=== PATIENT | female | born 1925 | race Caucasian/White ===

== ENCOUNTER 2016-09-22 09:16 | Inpatient (IN) | payer OTHER, BC ==
[~2016-09-22] VITALS: Ht 170.2 cm; Wt 71.8 kg
--- NOTE | ~2016-09-22 | 2DMMODE ---
[facility] [place] [address] 2 D/M-MODE ECHOCARDIOGRAM Name: DARIO CATHERINE Room #: 219-P ADM IN .R.#: [id number] Admission: 09/22/16 Attend Phys: Dallas Abreu MD Discharge: Date of : [birth year] Date of Service: 09/22/16 1757 Report #: [id number] THIS REPORT FOR: //name// APPROVED REPORT Study performed: 09/22/2016 15:18:26 EXAM: Comprehensive 2D, Doppler, and color-flow Echocardiogram Patient Location: Bedside Room #: 219 Other Information Study Quality: Adequate Indications Arrhythmia COPD Hypertension/HDD 2D Dimensions RVDd: 23.67 mm LVEF(%): 54.65 (>50%) IVSd: 15.38 (7-11mm) LVOT Diam: 21.39 (18-24mm) LVDd: 30.95 mm PWd: 15.60 (7-11mm) Ascending Ao: 29.72 (22-36mm) LVDs: 22.49 (25-40mm) Aortic Root: 29.10 mm IVC: 17.00 mm Watkins's LVEF: 54.65 % Volumes Left Atrial Volume (Systole) Single Plane 4CH: 26.01 mL Single Plane 2CH: 61.95 mL LA ESV Index: 24.00 mL/m2 Aortic Valve AoV Peak Keny.: 1.85 m/s AO Peak Gr.: 14.13 mmHg LVOT Max P.79 mmHg LVOT Max V: 0.84 m/s ROBI Vmax: 1.62 cm2 Mitral Valve MV E Max Keny.: 1.25 m/s IVRT: 110.73 ms [facility] [place] [place] [address] 2 D/M-MODE ECHOCARDIOGRAM Name: DARIO CATHERINE Room #: 219-P [facility] IN [facility].#: [id number] Admission: 09/22/16 Attend Phys: Dallas Abreu MD Discharge: Date of : [birth year] Date of Service: 09/22/16 1757 Report #: [id number] Pulmonary Valve PV Peak Keny.: 0.98 m/s PV Peak Gr.: 3.86 mmHg Tricuspid Valve TR Peak Keny.: 3.48 m/s RAP Estimate: 5.00 mmHg TR Peak Gr.: 48.56 mmHg Left Ventricle The left ventricle is normal size. There is normal LV segmental wall motion. Moderate concentric left ventricular hypertrophy. The overall left ventricular systolic function appears normal. LVEF is 60%. This study is not technically sufficient to allow evaluation of the LV diastolic function due to atrial flutter. Right Ventricle The right ventricle is normal size. The right ventricular systolic function is normal. Atria The left atrium size is normal. The right atrium size is normal. Aortic Valve The Aortic valve is mildly calcified Mild aortic regurgitation. There is no aortic valvular stenosis. Mitral Valve Moderate mitral annular calcification Mild mitral regurgitation. Tricuspid Valve The tricuspid valve is normal in structure. There is trace to mild tricuspid regurgitation. The right atrial pressure is estimated at 10 mmHg and PAP estimated at 59 mmHg. Pulmonic Valve The pulmonary valve is normal in structure. Trace pulmonic regurgitation. Great Vessels The aortic root is normal in size. IVC is normal in size and collapses <50% with inspiration. Pericardium There is no pericardial effusion. [facility] [place] [address] 2 D/M-MODE ECHOCARDIOGRAM Name: DARIO CATHERINE Room #: 219-P [facility] IN M.R.#: [id number] Admission: 09/22/16 Attend Phys: Dallas Abreu MD Discharge: Date of : [birth year] Date of Service: 09/22/161756 Report #: [id number] <Conclusion> The overall left ventricular systolic function appears normal. Moderate concentric left ventricular hypertrophy. There is normal LV segmental wall motion. LVEF 60%. The Aortic valve is mildly calcified, no stenosis. Mild aortic regurgitation. Moderate mitral annular calcification Mild mitral regurgitation. Pulmonary artery pressure of 55mmHg There is no pericardial effusion. <ELECTRONICALLY SIGNED> By: Mau Smith MD, [facility] 09/22/161756 56 1757 Mau Smiht MD, FACC /INF
[~2016-09-22 09:16] MED LIST: ADVAIR 100-501 EACH INH; ADVAIR 250-501 EACH INH; ALLERGY10 MG PO; ASPIR 8181 MG PO; ATACAND8 MG PO; AUGMENTIN 875875 M1 PO; AVAPRO300 MG PO; AZITHROMYCIN 2250 MG PO; CENTRUM SILVER1 EAC1 PO; COZAAR PO; DUONEB 2.5-0.5 M3 ML INH; FLONASE; FUROSEMIDE 40 M40 M1 PO; HYDROCHLOROTH12.5 MG PO; HYDROCODON-ACE1 EAC7 PO; HYDROCODONE-CHLO5 ML PO; IRON325; IRON325 PO; KLOR-CON 10 ER10 MEQ PO; KLOR-CON PO; LASIX 40 MG TAB40 M1 PO; LASIX 40 MG TAB40 M2 PO; LIPITOR10 MG PO; MIRALAX17 GM PO; NITRO-DUR 10 C0.2 MG TD; NORCO 5-325 TA1 EACH PO; OCUVITE TABLET1 EAC1 PO; OMEPRAZOLE20 MG PO; OS-CAL 500+D C1 EACH PO; PREDNISONE50 MG PO; PRESERVISION L1 EACH PO; PROAIR HFA8.5 GM IH; PROAIR HFA8.5 GM INH; PROTONIX40 M1 PO; SIMVASTATIN40 MG PO; VENTOLIN HFA 1818 GM; VERAPAMIL ER180 M1 PO; VERAPAMIL HCL180 M1 PO; VITAMIN D1000 UNI1 PO; ZPAK PO
[2016-09-22 12:40] VITALS: BP 183/97
[2016-09-22 16:00] VITALS: BP 135/64
[2016-09-22 19:27] VITALS: BP 144/70
[2016-09-22 22:11] LABS: ABSOLUTE NEUTROPHILS 4.2 thou/uL (1.4-8.2); BASOPHILS 0.6 % (0.0-2.0); EOSINOPHILS 6.6 % (0.0-3.0); HEMATOCRIT 33.6 % (37.0-47.0); LYMPHOCYTES 19.7 % (24.0-44.0); MCH 30.1 pg (26.0-34.0); MCHC 32.7 g/dL (28.0-37.0); MCV 92.2 fL (80.0-100.0); MONOCYTES 9.6 % (1.0-8.0); PLATELET COUNT 157 thou/uL (150-400); POLYS 63.5 % (36.0-66.0); RBC 3.65 mil/uL (4.20-5.00); WBC 6.6 thou/uL (4.0-11.0)
[2016-09-22 22:12] LABS: MANUAL DIFF NO
[2016-09-22 22:26] LABS: ALBUMIN 3.1 g/dL (3.4-5.0); CREATININE 1.7 mg/dL (0.6-1.0); POTASSIUM 4.5 mmol/L (3.5-5.1); TOTAL BILIRUBIN 0.5 mg/dL (<0.1-1.0); TOTAL PROTEIN 6.2 g/dL (6.4-8.2)
[2016-09-22 22:58] VITALS: BP 153/75
[2016-09-23 03:27] VITALS: BP 164/84
[2016-09-23 03:29] LABS: HEMATOCRIT 38.6 % (37.0-47.0); HEMOGLOBIN 12.4 gm/dL (12.0-15.0); MCH 29.4 pg (26.0-34.0); MCV 91.8 fL (80.0-100.0); PLATELET COUNT 182 thou/uL (150-400); RDW 14.2 % (10.5-14.5); WBC 4.9 thou/uL (4.0-11.0)
[2016-09-23 03:31] LABS: MANUAL DIFF YES
[2016-09-23 03:40] LABS: CALCIUM 9.3 mg/dL (8.5-10.1); CREATININE 1.9 mg/dL (0.6-1.0); POTASSIUM 4.7 mmol/L (3.5-5.1)
[2016-09-23 03:58] LABS: ABSOLUTE NEUTROPHILS 4.5 thou/uL (1.4-8.2); PLATELET ESTIMATE NORMAL; TOTAL CELL COUNT 100
[2016-09-23 07:56] VITALS: BP 173/85
[2016-09-23 21:02] VITALS: BP 116/73
[2016-09-24 03:36] LABS: HEMATOCRIT 31.7 % (37.0-47.0); HEMOGLOBIN 10.7 gm/dL (12.0-15.0); MCH 30.1 pg (26.0-34.0); MCHC 33.6 g/dL (28.0-37.0); MCV 89.7 fL (80.0-100.0); PLATELET COUNT 150 thou/uL (150-400); RBC 3.53 mil/uL (4.20-5.00); WBC 6.2 thou/uL (4.0-11.0)
[2016-09-24 03:38] LABS: MANUAL DIFF YES
[2016-09-24 03:58] LABS: CALCIUM 8.9 mg/dL (8.5-10.1); CREATININE 1.9 mg/dL (0.6-1.0); POTASSIUM 4.4 mmol/L (3.5-5.1)
[2016-09-24 04:11] VITALS: BP 143/71
[2016-09-24 06:46] LABS: TOTAL CELL COUNT 100
[2016-09-24 06:47] LABS: ANISOCYTOSIS 1+
[2016-09-24 08:00] VITALS: BP 143/68
[2016-09-24 10:55] VITALS: BP 134/61
[2016-09-24 15:57] VITALS: BP 146/69
[2016-09-24 19:14] VITALS: BP 131/58
[2016-09-25 03:25] VITALS: BP 136/65
[2016-09-25 08:37] VITALS: BP 142/80
[2016-09-25 12:07] VITALS: BP 140/73
[2016-09-25 16:42] VITALS: BP 156/86
[2016-09-25 20:00] VITALS: BP 142/71
[2016-09-26 04:07] VITALS: BP 158/75
[2016-09-26 08:09] VITALS: BP 153/95
[2016-09-26] MEDS ORDERED: LEVAQUIN 500 M500 M2 PO (11:21)
[2016-09-26 12:26] VITALS: BP 142/72
[2016-09-26 15:23] VITALS: BP 152/67
== END 2016-09-26 16:30 | DRG 189 ==
LOC: RAD 09:16 → 2N 11:56
PROVIDERS: Family Medicine; Internal Medicine Endocrinology, Diabetes & Metabolism; Internal Medicine Pulmonary Disease
DX: J96.21 Acute and chronic respiratory failure with hypoxia (principal); J44.1 Chronic obstructive pulmonary disease with (acute) exacerbation; I48.92 Unspecified atrial flutter; J44.0 Chronic obstructive pulmonary disease with (acute) lower respiratory infection; I12.9 Hypertensive chronic kidney disease with stage 1 through stage 4 chronic kidney disease, or unspecified chronic kidney disease; Z66 Do not resuscitate; N18.3 Chronic kidney disease, stage 3 (moderate); I89.0 Lymphedema, not elsewhere classified; E78.5 Hyperlipidemia, unspecified; J20.9 Acute bronchitis, unspecified; R53.81 Other malaise; I27.2 Other secondary pulmonary hypertension; N28.9 Disorder of kidney and ureter, unspecified; Z99.81 Dependence on supplemental oxygen; Z82.49 Family history of ischemic heart disease and other diseases of the circulatory system; Z90.5 Acquired absence of kidney; Z87.81 Personal history of (healed) traumatic fracture; Z98.42 Cataract extraction status, left eye; Z91.81 History of falling; Z98.41 Cataract extraction status, right eye
CPT/HCPCS: 10081

== ENCOUNTER 2016-12-09 10:49 | Inpatient (IN) | payer OTHER, BC ==
[~2016-12-09] VITALS: Ht 157.5 cm; Wt 69.4 kg
--- NOTE | ~2016-12-09 | EKG ---
[address] [address] ELECTROCARDIOGRAM REPORT Name: DARIO CATHERINE Room #: 442- ADM IN M.R.#: [id number] Admission: 12/09/16 Attend Phys: Glenn Barnes MD Discharge: Date of : [birth year] Report #: [id number] THIS REPORT FOR: //name// 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: : 1925 Requested By: Glenn Barnes Order Number: [id number] MD: Mau Smith Measurements Intervals [place] Rate: 96 P: TN: QRS: 39 QRSD: 82 T: 30 QT: 418 QTc: 529 Interpretive Statements Atrial fibrillation Prolonged QT interval Compared to ECG 04/18/2016 13:24:14 Prolonged QT interval now present Atrial fibrillation has replaced sinus rhythm Electronically Signed On 12-12-2016 8:55:10 CDT by Mau Smith [email or web address] <ELECTRONICALLY SIGNED> By: Mau Smith MD, [facility] 12/12/16 0855 0738 0738 Mau Smith MD, [facility] /EPI
--- NOTE | ~2016-12-09 | EKG ---
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: MAUREEN : 1925 Requested By: Zheng Miles Order Number: [id number] MD: Mau Smith Measurements Intervals [place] Rate: 92 P: 60 RI: 218 QRS: 46 QRSD: 92 T: 20 QT: 376 QTc: 466 Interpretive Statements Sinus rhythm Multiple ventricular premature complexes Prolonged RI interval RSR' in V1 or V2, right VCD Compared to ECG 04/18/2016 13:24:14 Ventricular premature complex(es) now present Electronically Signed On 12-12-2016 8:10:32 CDT by Mau Smith [email or web address] <ELECTRONICALLY SIGNED> By: Mau Smith MD, [facility] 12/12/16 0810 183 183 Mau Smith MD, [facility] /EPI
--- NOTE | ~2016-12-09 | HC ---
[facility] [place] [place] [address] CONSULTATION Name: DARIO CATHERINE Room #: 442-P [facility] IN .R.#: [id number] Admission: 12/09/16 Attend Phys: Glenn Barnes MD Discharge: 12/13/16 Date of : [birth year] Report #: [id number] THIS REPORT FOR: //name// CC: Glenn Barnes DATE OF SERVICE: 12/12/2016 HISTORY OF PRESENT ILLNESS: The patient is an 89-year-old white female originally admitted with shortness of breath, confusion over the last several days. She was diagnosed with a healthcare-associated pneumonia, COPD, CHF, acute on chronic exacerbation with acute renal insufficiency superimposed on chronic kidney disease. She was noted to have problems with ambulation. CT of the head revealed a subacute infarct, left temporal occipital area. She was noted to have right homonymous hemianopsia. She was thought to have some dementia as well and was started on Aricept. Neurology has been involved. She was noted to have significant functional decline from her premorbid level and we are seeing her in rehabilitation medicine consultation. PAST MEDICAL HISTORY: Includes hypertension, COPD, nephrectomy, history of falls, GI bleed, Zenker's diverticulum, chronic kidney disease stage 3, lymphedema, atrial flutter. MEDICATIONS: Please see the full medication listing. ALLERGIES: No known drug allergies. HABITS: No history of tobacco or alcohol abuse. SOCIAL HISTORY: Lives in a house with her , used a walker premorbidly. She was able to get around quite well with a walker per report. She does have a caregiver 4 hours in the morning and 4 hours in the evening and needed some help with ADLs. Plan per record review is for the patient to improve as far as her overall function and then to have increased care up to 24 hours when she is able to return back to the home setting. FAMILY HISTORY: No pertinent. REVIEW OF SYSTEMS: Did not offer any current complaints of chest pain, shortness of breath or abdominal discomfort. She has a prior history of distal lower extremity lymphedema. No focal extremity pain complaints, however. Denied any obvious visual field or visual problems. PHYSICAL EXAMINATION: GENERAL: She is a small statured, thin 89-year-old white female, in no obvious distress. She is alert. She is pleasant. VITAL SIGNS: Last recorded temperature is 97.8, pulse 83, respirations 20, [facility] [address] [place] [address] CONSULTATION Name: DARIO CATHERINE Room #: 442-P [facility] IN ..#: [id number] Admission: 12/09/16 Attend Phys: Glenn Barnes MD Discharge: 12/13/16 Date of : [birth year] Report #: [id number] blood pressure 133/60. HEENT: Appeared to be benign. NEUROLOGIC: Cranial nerves appear grossly intact, although she may have some decreased right visual field consistent with previously noted homonymous hemianopsia. Facies otherwise appeared symmetric. She has functional range of motion of both upper and lower extremities. Strength is grade 4-/5. DTRs are trace to 1. She does appear to have some chronic distal lower extremity edema and has a prior history of lymphedema as noted above. DTRs were 1. She is min assist to the chair. Bed mobility is noted to be mod assist. ASSESSMENT: An 89-year-old white female with the following problem list: 1. Left temporo-occipital cerebrovascular accident. 2. Right homonymous hemianopsia. 3. Functional mobility and ADL deficits with decreased from premorbid functional status. 4. Likely dementia. She has been started on Aricept. 5. Healthcare-associated pneumonia. She has a bibasilar infiltrate, continuing on oxygen, pulmonary medicine is involved. 6. Acute renal insufficiency has resolved. 7. Congestive heart failure, chronic systolic. 8. Atrial fibrillation historically with irregularity noted. EKG is being checked. 9. Anemia of chronic disease. PLAN: Anticipate the patient would be a good candidate for an acute in-hospital inpatient rehabilitation stay. From a preadmission screening perspective: 1. Prior level of function is well delineated above. 2. Expect level of improvement would be for the patient to become modified independent with transfers, mobility, ADLs as well as improved cognition ideally, so that she can hopefully return back to the home setting. Would anticipate length of stay of probably 2-3 weeks. 3. Evaluation of the patient's risk for clinical complications. She does have multiple medical comorbidities as noted above. 4. Condition that caused the need for rehabilitation would be the acute stroke. 5. Treatments need would include PT and OT and speech 1 hour per day each five days a week throughout the duration of the acute inpatient rehabilitation stay. 6. Anticipated discharge destination would be back to the home setting with her and with increased caregiver support. 7. Anticipated post-discharge treatments would include home healthcare therapies. <ELECTRONICALLY SIGNED> By: Сергей Gallo MD 12/14/16 1006 1019 2332 Сергей Gallo MD /[facility]
--- NOTE | ~2016-12-09 | HC ---
[facility] [place] [address] CONSULTATION Name: DARIO CATHERINE Room #: 442-P ADM IN M.R.#: [id number] Admission: 12/09/16 Attend Phys: Glenn Barnes MD Discharge: Date of : [birth year] Report #: [id number] THIS REPORT FOR: //name// CC: Glenn Barnes DATE OF SERVICE: 12/09/2016 REFERRING PROVIDER: Dr. Glenn Barnes REASON FOR CONSULTATION: Shortness of breath. CHIEF COMPLAINT: Altered mental status and shortness of breath. HISTORY OF PRESENT ILLNESS: Our group was asked to see the patient in consultation while hospitalized at [facility]. An 89-year-old woman, difficult getting any history. History taken from personal care provider and family that was at bedside. Has known history of COPD. Has been recently hospitalized and subsequently recently discharged in mid September. Admission at that time was pneumonia. Had been in rehab hospitals for several weeks and subsequently went home for just few weeks. When this occurred, care provider thought it might be related to a scopolamine patch, which was in place due to some vertigo symptoms and this was discontinued 2 days ago; however, patient continues to have some confusion, difficulty speaking, brought to the emergency department. On the emergency department, she was felt to have pneumonia and subsequently admitted. At this time, patient still appears slightly confused, although awake but tachypneic. ALLERGIES: None known. PAST MEDICAL HISTORY: 1. History of COPD. 2. Chronic renal insufficiency. 3. Chronic lower extremity edema. 4. Hyperlipidemia. 5. Hypertension. OUTPATIENT MEDICATIONS: 1. Diclofenac. 2. Lasix. 3. DuoNebs. 4. Irbesartan. 5. Klor-Con. 6. Protonix. 7. ProAir. 8. Verapamil. 9. Voltaren Gel. [facility] [address] [place] [address] CONSULTATION Name: DARIO CATHERINE Room #: 442-P [facility] IN ..#: [id number] Admission: 12/09/16 Attend Phys: Glenn Barnes MD Discharge: Date of : [birth year] Report #: [id number] 10. Atorvastatin. 11. Magnesium. SOCIAL HISTORY: The patient is a never smoker. No alcohol consumption. FAMILY HISTORY: Noncontributory due to advanced age and parents of advanced age. REVIEW OF SYSTEMS: Difficult to obtain from patient due to current confusion. However, patient is able to answer some yes/no questions. Denies any headaches, nausea, vomiting. Recent history of vertigo. Some minor chest tightness without chest pain otherwise. No fevers, chills or sweats. Chronic lower extremity edema is noted. Rest of 12-point review of systems is normal. PHYSICAL EXAMINATION: VITAL SIGNS: Afebrile, pulse 90, respiratory rate 30, blood pressure 168/76 and oxygen saturation 94% on 3 liters. GENERAL: This is an elderly woman, mild respiratory distress. ENT: Clear oropharynx. No thrush. NECK: Supple. No lymphadenopathy. LUNGS: Diminished with basilar inspiratory crackles. No wheezes. CARDIOVASCULAR: Heart regular but tachycardic. No murmurs noted. ABDOMEN: Soft and nontender. No masses. EXTREMITIES: With 1+ edema. LABORATORIES: Chest x-ray reveals large hiatal hernia. Some right basilar infiltrative changes were appreciated. White blood cell count 8000, hemoglobin 9, hematocrit 27 and platelet count 286. Sodium 143, potassium ____, chloride 102 and bicarbonate 35. BUN 84 and creatinine 2.1. Glucose 114. ProBNP was 1904. Troponin was normal. IMPRESSION: 1. Altered mental status of unclear etiology. We will check CT scan of the head and consider neurology consultation. 2. Epwue-cu-scgpogi respiratory failure, hypoxemic. 3. Right greater than left basilar infiltrates, concerning for pneumonia, possibly aspiration. 4. Underlying chronic obstructive pulmonary disease with acute exacerbation. 5. Large hiatal hernia. 6. Ovvua-fw-zldeawm renal insufficiency. 7. Anemia appears to be similar to prior hemoglobin levels. 8. History of hypertension. SUGGESTIONS: 1. Recommend CT scan of the head. 2. Continue with bronchodilators. The patient received Levaquin in the [address] [address] CONSULTATION Name: DARIO CATHERINE Room #: 442-P ADM IN M.R.#: [id number] Admission: 12/09/16 Attend Phys: Glenn Barnes MD Discharge: Date of : [birth year] Report #: [id number] emergency department. Continue with antimicrobial therapy. Consider changing coverage to cover for essential anaerobic or aspiration organisms. 3. Systemic steroids. 4. Telemetry. 5. Check EKG 6. Continuous oximetry. 7. DNR per patient wishes. 8. We will follow along with you. Thank you for requesting our suggestions. By: 1928 0123 Zheng Miles MD /nt
--- NOTE | ~2016-12-09 | EKG ---
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: [id number] : 1925 Requested By: Hever Mosher Order Number: [id number] MD: Mau Smith Measurements Intervals [place] Rate: 87 P: 50 GA: 218 QRS: 35 QRSD: 94 T: 56 QT: 423 QTc: 509 Interpretive Statements Sinus rhythm Borderline prolonged GA interval Prolonged QT interval Baseline wander in lead(s) V2 Compared to ECG 04/18/2016 13:24:14 Prolonged QT interval now present Electronically Signed On 12-12-2016 8:05:08 CDT by Mau Smith [email or web address] <ELECTRONICALLY SIGNED> By: Mau Smith MD, [facility] 12/12/16 0805 1107 1107 Mau Smiht MD, [facility] /EPI
--- NOTE | ~2016-12-09 | 2DMMODE ---
[place] [address] [facility] [place] [address] 2 D/M-MODE ECHOCARDIOGRAM Name: DARIO CATHERINE [place] Room #: 442-P [facility] IN .R.#: [id number] Admission: 12/09/16 Attend Phys: Glenn Barnes, Discharge: Date of : [birth year] Date of Service: 12/12/16 1648 Report #: [id number] THIS REPORT FOR: //name// APPROVED REPORT Study performed: 12/12/2016 11:28:46 EXAM: Comprehensive 2D, Doppler, and color-flow Echocardiogram Patient Location: Bedside Room #: 442 Status: routine BSA: 1.71 BP: 157/72 mmHg Other Information Study Quality: AdequateTechnically Difficult Technically limited study due to inability to position patient, lung disease. Indications Arrhythmia COPD CVA/TIA Hypertension/HDD Echo Enhancing Agent Indication: Rule out Shunt Agent(s) / Amount(s) Used: Agitated Saline 6 cc 2D Dimensions LVEF(%): 59.21 (>50%) IVSd: 12.93 (7-11mm) LVDd: 38.25 mm PWd: 14.41 (7-11mm) LVDs: 26.45 (25-40mm) IVC: 21.00 mm Watkins's LVEF: 59.21 % Aortic Valve AoV Peak Keny.: 1.99 m/s AO Peak Gr.: 16.03 mmHg LVOT Max P.35 mmHg LVOT Max V: 0.92 m/s Mitral Valve [facility] [address] [address] 2 D/M-MODE ECHOCARDIOGRAM Name: DARIO CATHERINE Room #: 442-P ADM IN .R.#: [id number] Admission: 12/09/16 Attend Phys: Glenn Barnes, Discharge: Date of : [birth year] Date of Service: 12/12/16 1648 Report #: [id number] E Max Keny.: 1.47 m/s Tricuspid Valve TR Peak Keny.: 3.22 m/s RAP Estimate: 10.00 mmHg TR Peak Gr.: 41.59 mmHg Left Ventricle The left ventricle is normal size. Regional wall motion is grossly normal. Mild to moderate concentric left ventricular hypertrophy. The left ventricular systolic function is normal. The left ventricular ejection fraction is within the normal range. LVEF is 60%. Atria Left atrium is dilated. No intracardiac shunting by contrast bubble injection Aortic Valve The aortic valve is mild-moderately calcified Mild aortic regurgitation. There is no aortic valvular stenosis. Mitral Valve Moderately heavy mitral annular calcification. Mild mitral regurgitation. No evidence of mitral valve stenosis. Tricuspid Valve The tricuspid valve is normal in structure. There is mild tricuspid regurgitation. The right atrial pressure is estimated at 10 mmHg. PAP is estimated at 52 mmHg. Pulmonic Valve The pulmonary valve is normal in structure. Great Vessels The aortic root is normal in size. IVC is upper limits of normal and collapses <50% with inspiration. Pericardium There is no pericardial effusion. <Conclusion> The left ventricular systolic function is normal. Regional wall motion is grossly normal. LVEF 60%. No intracardiac shunting by contrast bubble injection The aortic valve is mild-moderately calcified. Mild aortic regurgitation, no stenosis. [facility] [place] [address] 2 D/M-MODE ECHOCARDIOGRAM Name: DARIO CATHERINE Room #: 442-P [facility] IN M.R.#: [id number] Admission: 12/09/16 Attend Phys: Glenn Barnes, Discharge: Date of : [birth year] Date of Service: 12/12/161647 Report #: [id number] Moderately heavy mitral annular calcification. Mild mitral regurgitation. Pulmonary artery pressure of 52mmHg No pericardial effusion <ELECTRONICALLY SIGNED> By: Mau Smith MD, FACC 12/12/161647 47 47 Mau Smith MD, FACC /INF
[~2016-12-09 10:49] MED LIST changes: +LEVAQUIN 500 M500 M2 PO
[2016-12-09 10:52] VITALS: BP 174/59
[2016-12-09 11:34] LABS: ABSOLUTE NEUTROPHILS 5.4 thou/uL (1.4-8.2); BASOPHILS 0.8 % (0.0-2.0); EOSINOPHILS 6.9 % (0.0-3.0); HEMATOCRIT 27.4 % (37.0-47.0); HEMOGLOBIN 9.2 gm/dL (12.0-15.0); LYMPHOCYTES 11.5 % (24.0-44.0); MCH 30.2 pg (26.0-34.0); MCHC 33.6 g/dL (28.0-37.0); MCV 89.9 fL (80.0-100.0); MONOCYTES 11.5 % (1.0-8.0); PLATELET COUNT 256 thou/uL (150-400); POLYS 69.3 % (36.0-66.0); RBC 3.05 mil/uL (4.20-5.00); RDW 13.2 % (10.5-14.5); WBC 7.8 thou/uL (4.0-11.0)
[2016-12-09 11:35] LABS: MANUAL DIFF NO
[2016-12-09 11:39] LABS: CALCIUM 8.8 mg/dL (8.5-10.1); CREATININE 2.1 mg/dL (0.6-1.0); POTASSIUM 4.1 mmol/L (3.5-5.1)
[2016-12-09 11:45] LABS: ABG SAMPLE TYPE ARTERIAL; BE(vivo) 6.6 mmol/L (-2 to +3); LACTATE 1.06 mmol/L (0.5-2.0); O2(CT) 12.9 mL/dL (15.0-23.0); PCO2 50.5 mmHg (35.0-45.0); PO2 60.2 mmHg (80.0-100.0); sO2 91.2 % (92.0-98.0); tCO2 33.6 mmol/L (24.0-30.0)
[2016-12-09 11:46] LABS: STICK SITE R.BRACHIAL
[2016-12-09 11:48] LABS: TROPONIN-I 0.04 ng/mL (<0.04-0.07)
[2016-12-09 14:18] VITALS: BP 167/64
[2016-12-09 14:55] VITALS: BP 165/66
[2016-12-09 16:39] VITALS: BP 168/76
[2016-12-09 20:19] VITALS: BP 171/73
[2016-12-10 03:19] VITALS: BP 170/80
[2016-12-10 03:49] LABS: HEMATOCRIT 27.4 % (37.0-47.0); HEMOGLOBIN 9.1 gm/dL (12.0-15.0); MCH 29.7 pg (26.0-34.0); RBC 3.05 mil/uL (4.20-5.00); WBC 3.7 thou/uL (4.0-11.0)
[2016-12-10 04:03] LABS: CALCIUM 8.4 mg/dL (8.5-10.1); CREATININE 1.9 mg/dL (0.6-1.0)
[2016-12-10 04:29] LABS: CHOLESTEROL 170 mg/dL (<200); HDL CHOLESTEROL 72 mg/dL (>40); LDL CHOLESTEROL 86 mg/dL (<100); TC:HDL 2.4 Ratio (Not establshd); TRIGLYCERIDE 62 mg/dL (<150); VLDL 12 mg/dL (<40)
[2016-12-10 04:31] LABS: FOLIC ACID 17.3 ng/mL (8.6-58.9); TSH 0.873 uIU/mL (0.358-3.740)
[2016-12-10 04:41] LABS: SERUM ASSESSMENT Clear
[2016-12-10 08:00] VITALS: BP 169/62
[2016-12-10 16:00] VITALS: BP 165/72
[2016-12-10 19:46] VITALS: BP 136/41
[2016-12-11 05:54] VITALS: BP 163/63
[2016-12-11 08:00] VITALS: BP 170/61
[2016-12-11 16:00] VITALS: BP 127/50
[2016-12-11 21:00] VITALS: BP 162/57
[2016-12-12] VITALS: BP 162/72
[2016-12-12 03:39] VITALS: BP 165/62
[2016-12-12 05:28] LABS: HEMATOCRIT 29.1 % (37.0-47.0); HEMOGLOBIN 9.6 gm/dL (12.0-15.0); MCH 29.7 pg (26.0-34.0); MCHC 32.9 g/dL (28.0-37.0); MCV 90.3 fL (80.0-100.0); RBC 3.23 mil/uL (4.20-5.00); WBC 10.4 thou/uL (4.0-11.0)
[2016-12-12 05:39] LABS: CALCIUM 8.6 mg/dL (8.5-10.1); CREATININE 1.7 mg/dL (0.6-1.0); POTASSIUM 3.8 mmol/L (3.5-5.1)
[2016-12-12 06:15] VITALS: BP 158/67
[2016-12-12 08:00] VITALS: BP 157/72
[2016-12-12 16:00] VITALS: BP 152/71
[2016-12-12 20:45] VITALS: BP 148/68
[2016-12-13 04:55] VITALS: BP 165/69
[2016-12-13] MEDS ORDERED: LEVAQUIN 500 M500 M3 PO (07:31)
[2016-12-13 08:13] VITALS: BP 162/83
[2016-12-13 09:03] VITALS: BP 162/83
== END 2016-12-13 10:52 | DRG 64 ==
LOC: ER 10:49 → 4S 13:08 → EROBS 13:08 → 4S 14:56
PROVIDERS: Family Medicine; Nurse Practitioner; Psychiatry & Neurology Neurology
DX: I63.9 Cerebral infarction, unspecified (principal); J18.9 Pneumonia, unspecified organism; J96.01 Acute respiratory failure with hypoxia; I50.23 Acute on chronic systolic (congestive) heart failure; N17.9 Acute kidney failure, unspecified; I48.92 Unspecified atrial flutter; J44.0 Chronic obstructive pulmonary disease with (acute) lower respiratory infection; I13.0 Hypertensive heart and chronic kidney disease with heart failure and stage 1 through stage 4 chronic kidney disease, or unspecified chronic kidney disease; N18.3 Chronic kidney disease, stage 3 (moderate); Z77.22 Contact with and (suspected) exposure to environmental tobacco smoke (acute) (chronic); E78.5 Hyperlipidemia, unspecified; K44.9 Diaphragmatic hernia without obstruction or gangrene; H53.461 Homonymous bilateral field defects, right side; I48.91 Unspecified atrial fibrillation; D63.8 Anemia in other chronic diseases classified elsewhere; F03.90 Unspecified dementia, unspecified severity, without behavioral disturbance, psychotic disturbance, mood disturbance, and anxiety; Z90.5 Acquired absence of kidney; Z79.899 Other long term (current) drug therapy
CPT/HCPCS: 10100

== ENCOUNTER 2016-12-13 08:56 | Inpatient (IN) | payer OTHER, BC ==
[~2016-12-13] VITALS: Ht 157.5 cm; Wt 69.9 kg
--- NOTE | ~2016-12-13 | HC ---
[facility] [place] [address] CONSULTATION Name: DARIO CATHERINE Room #: 514-P ADM IN M.R.#: [id number] Admission: 12/13/16 Attend Phys: Tomás Barbosa MD Discharge: Date of : [birth year] Report #: [id number] THIS REPORT FOR: //name// CC: Сергей Barnes DATE OF SERVICE: 12/18/2016 NEUROBEHAVIORAL STATUS EXAM ATTENDING PHYSICIAN: Сергей Gallo MD PNEUMATIC JACKETER: Glenn Gordon, PhD CLINICAL PRESENTATION: The patient is an 89-year-old female admitted to the [facility] Unit for comprehensive inpatient rehabilitation to improve functional mobility and activities of daily living and self-care secondary to mental status changes. She was diagnosed with healthcare-associated pneumonia, COPD, CHF, acute on chronic exacerbation with acute renal insufficiency, superimposed on chronic kidney disease. The patient had difficulty with ambulation. A CT scan of her head revealed a subacute infarction of the left temporal occipital area. The patient was noted to have a right homonymous hemianopsia. Premorbid dementia was reported prior to this most recent event. A complete description of her medical condition and history can be found in her medical records. Neuropsychological consultation was requested to provide assistance in the assessment of cognitive and emotional status and to provide recommendations and services. Prior to this most recent event, she was living independently with her in their home. The patient had 8 hours of home care. There were 4 hours in the morning and 4 hours at the end of the day. The home care has been available for about 1 year. The patient's family described a discontinuation of driving about 3-4 years ago. Decreased mobility was noted. The patient has 5 children. She is a high school graduate. TECHNIQUES UTILIZED: Clinical interview, review of medical records, staff consultation and behavioral observation, family interview - son, clock drawing and category fluency. EXAMINATION FINDINGS: The patient was alert and cooperative with the assessment. She accurately identified the reason for her hospitalization. She described her symptoms to primarily center on tiredness and fatigue, although she also reports deficits in short-term memory, anxiety, sleep and word [facility] [address] [place] [address] CONSULTATION Name: DARIO CATHERINE Room #: 514-P [facility] IN ..#: [id number] Admission: 12/13/16 Attend Phys: Tomás Barbosa MD Discharge: Date of : [birth year] Report #: [id number] finding. She does not report subjective depression or anxiety. Her family indicates that she discontinued driving about 3-4 years ago upon her own initiative. A deterioration in her functioning was noted about 1 year ago and primarily involved mobility. She had been independent basic, but not instrumental activities of daily living prior to this most recent medical event. Her performance on the MMSE 2 brief version is in the zmdx-wa-zsflaoet range of impairment with a raw score 12 of 16, which is a T score at 31 and percentile rank of 3. She was 3/3 for initial registration, 4/5 for orientation to time and 5/[address]. She was 0/3 for immediate recall of 3 items after a brief time delay and distraction. Her performance deteriorated on the MMSE 2 standard version to a raw score of 18 of 30, which is extremely low with a T score of 17. She was 0/5 for serial 7s, 2/2 for naming, 1/1 for repetition. Auditory comprehension was 3 of 3. The patient was unable to read and follow a single command. She also could not write a sentence or copy a simple geometric design. Category fluency was extremely low with a raw score at 3. Her personality was playful. She displays slow processing and poor verbal and written comprehension. However, spontaneous social interaction was engaging. DIAGNOSTIC IMPRESSION: Major neurocognitive disorder (dementia), unspecified, without behavior disorder - extent to be determined likely in the moderate range. Unspecified depressive disorder (from family description). RECOMMENDATIONS: The patient is likely to require increased supervision upon her discharge home. Assistance will be necessary for medical, financial and nutritional anagement. Verbal praise and complements during participation in therapies will be helpful. Clear and specific objectives regarding therapies will assist her overall ability to comply and succeed in meeting therapuetic objectives. Verbal praise and complements about her engagement in therapy will assist cooperation. Followup neuropsych assessment will be of benefit in approximately 6 months to clarify her level of functioning. [address] [address] CONSULTATION Name: DARIO CATHERINE Brandon Room #: 514-P [facility] IN ..#: [id number] Admission: 12/13/16 Attend Phys: Tomás Barbosa MD Discharge: Date of : [birth year] Report #: [id number] Thank you very much for allowing me to provide the consultation on this patient. <ELECTRONICALLY SIGNED> By: Glenn Gordon, PhD 12/24/16 1445 [id number] Glenn Gordon, PhD /nt
--- NOTE | ~2016-12-13 | H ---
[facility] [place] [address] HISTORY AND PHYSICAL Name: DARIO CATHERINE Room #: 514-P [facility] IN .R.#: [id number] Admission: 12/13/16 Attend Phys: Сергей Gallo MD Discharge: Date of : [birth year] Report #: [id number] THIS REPORT FOR: //name// CC: Сергей Barnes DATE OF SERVICE: 12/13/2016 HISTORY OF PRESENT ILLNESS: The patient is an 89-year-old white female originally admitted with shortness of breath, confusion over the prior several days. She was diagnosed with healthcare-associated pneumonia, COPD, CHF, acute on chronic exacerbation with acute renal insufficiency, superimposed on chronic kidney disease. She was noted to have problems with ambulation. CT of the head revealed a subacute infarct in left temporal occipital area. She was noted to have a right homonymous hemianopsia. She was thought to have some dementia as well and was started on Aricept. Neurology was involved. She was noted to have a significant functional decline from her premorbid status and was admitted for acute in-hospital inpatient rehabilitation. PAST MEDICAL HISTORY: Includes hypertension, COPD, nephrectomy, history of falls, GI bleed, Zenker's diverticulum, chronic kidney disease stage 3, lymphedema, and atrial flutter. MEDICATIONS: Please see the full medication listing. ALLERGIES: No known drug allergies. HABITS: No history of tobacco or alcohol abuse. SOCIAL HISTORY: Lives in a house with her , used a walker premorbidly. She was able to get around quite well with a walker per records. She had a caregiver 4 hours in the morning and 4 hours in the evening and needed some help with ADLs. Discussion with the patient's daughter notes that the patient will have increased assistance at home. FAMILY HISTORY: Not pertinent. REVIEW OF SYSTEMS: Notes that she does not sleep very well and typically is a late riser. Did not offer any complaints of chest pain, shortness of breath or abdominal discomfort. No focal extremity pain complaints. Denies any swallowing problems per se. No complaints of bladder or bowel changes. MEDICATIONS: As noted above. See the full medication listing. Each of these medications were individually reconciled and include the vitamin, herbals, supplementation etc. [address] [address] HISTORY AND PHYSICAL Name: DARIO CATHERINE Room #: 514-P [facility] IN [facility].#: [id number] Admission: 12/13/16 Attend Phys: Сергей Gallo MD Discharge: Date of : [birth year] Report #: [id number] PHYSICAL EXAMINATION: GENERAL: An 89-year-old white female, in no obvious distress. She is pleasant. Follows basic commands without difficulty. VITAL SIGNS: Temperature is 98.3, pulse 74, respirations 20, blood pressure is 165/70. HEENT: Appeared to be benign. NEUROLOGIC: She is on nasal prong O2, currently at 1 liter. Facies were symmetric. She might have some decreased attention to the right visual field to confrontation. CHEST: Some mild decrease diffusely. CARDIOVASCULAR: Sounded regular rate and rhythm. ABDOMEN: Bowel sounds positive, nontender. GENITOURINARY AND RECTAL: Deferred. EXTREMITIES: She has functional range of motion of both upper extremities with strength grade 4-/5. DTRs are trace to 1. She appears to have some chronic distal lower extremity edema and has a prior history of some lymphedema. DTRs are 1. She is mod assist with transfers to chair. ASSESSMENT: An 89-year-old white female with the following problem list: 1. Left temporo-occipital cerebrovascular accident. 2. Right homonymous hemianopsia. 3. Functional mobility and ADL deficits, which are decreased from premorbid status. 4. Likely dementia. She was started on Aricept. 5. Healthcare-associated pneumonia. She has bibasilar infiltrates. She is on oxygen and has had pulmonary medicine involved. 6. Acute renal insufficiency that has resolved. 7. Congestive heart failure, chronic, systolic. 8. Atrial fibrillation, historically. 9. Anemia of chronic disease. PLAN: The patient is admitted for an acute in-hospital inpatient rehabilitation stay. From a post admission physician evaluation perspective, there are no relevant changes since the preadmission screening. Please see the above review of prior and current medical and functional conditions and comorbidities. Please see the patient's previous and current functional status. As far as risk of complication, she does have the above noted medical comorbidities. Initial plan of care involves the interdisciplinary acute inpatient rehabilitation program with the goal of maximizing the patient's functional independence, so that she can hopefully return back to her prior living situation. Measurable functional goals would be for the patient to become modified independent with transfers, mobility and ADLs as well as improvement with cognition, so that she can return back to the home setting. Prognosis is reasonably good with estimated length of stay probably at least 2 weeks and likely longer as warranted. Potential barriers would include her multiple medical comorbidities and decreased functional status. [facility] [address] [place] [address] HISTORY AND PHYSICAL Name: DARIO CATHERINE Room #: 514-P ADM IN .R.#: [id number] Admission: 12/13/16 Attend Phys: Сергей Gallo MD Discharge: Date of : [birth year] Report #: [id number] The patient meets diagnostic criteria for an acute in-hospital inpatient rehabilitation stay. She meets medical necessity criteria and we will have the media consultant outside sales physicians involved while she is on the rehab wong. She does have the tolerance for therapies, although we will have her at a low endurance program for right now. She does have appropriate discharge goals back to the home setting. By: [id number] Сергей Gallo MD /JIHAN
--- NOTE | ~2016-12-13 | PLAN ---
[facility] [place] [address] REHAB UNIT PLAN OF CARE Name: DARIO CATHERINE Room #: 514-P ADM IN M.R.#: [id number] Admission: 12/13/16 Attend Phys: Сергей Gallo MD Discharge: Date of : [birth year] Report #: [id number] THIS REPORT FOR: //name// CC: Сергей Barnes DATE OF SERVICE: 12/16/2016 The patient is seen back in followup. No new complaints. Last recorded temperature is 36.5, pulse 80, respirations 16, blood pressure 140/80. She has been involved with therapies with transfers min assist, gait min assist 75 feet, front-wheeled walker. Lower extremity dressing is mod assist. She does have wmlq-tb-bdvyskij comprehensive deficits. ASSESSMENT: 1. Left temporal occipital cerebrovascular accident. 2. Right homonymous hemianopsia. 3. Likely dementia, was started on Aricept. 4. Healthcare-associated pneumonia. She has bibasilar infiltrates, was on oxygen and has had pulmonary medicine involved. 5. Acute renal insufficiency that resolved. 6. Congestive heart failure, chronic, systolic. 7. Atrial fibrillation. 8. Anemia of chronic disease. PLAN: The overall plan of care is based on the preadmission screen, post-admission physician evaluation, and information garnered from therapy assessments. 1. Estimated length of stay is probably at least 2 weeks. 2. Medical prognosis is reasonably good. 3. Anticipated interventions include the interdisciplinary acute inpatient rehabilitation program with the goal of maximizing the patient's functional independence, so that she can hopefully return back to her prior living situation. 4. Anticipated functional outcomes would be for her to become modified independent at a walker level with mobility and ADLs and to improve as far as cognition. 5. Discharge destination would be back home with her . 6. Expected therapy by discipline includes PT, OT, and speech 1 hour per day, each five days a week throughout the duration of the acute inpatient rehabilitation stay. By: [id number] Сергей Gallo MD /PMT
[~2016-12-13 08:56] MED LIST changes: +LEVAQUIN 500 M500 M3 PO
[2016-12-13 18:33] VITALS: BP 135/55
[2016-12-13 20:00] VITALS: BP 165/70
[2016-12-14 04:24] LABS: HEMATOCRIT 31.7 % (37.0-47.0); HEMOGLOBIN 10.3 gm/dL (12.0-15.0); MCH 29.2 pg (26.0-34.0); MCHC 32.5 g/dL (28.0-37.0); MCV 89.8 fL (80.0-100.0); RBC 3.53 mil/uL (4.20-5.00); RDW 13.4 % (10.5-14.5); WBC 11.8 thou/uL (4.0-11.0)
[2016-12-14 04:37] LABS: CALCIUM 8.5 mg/dL (8.5-10.1); CREATININE 1.7 mg/dL (0.6-1.0); POTASSIUM 4.1 mmol/L (3.5-5.1)
[2016-12-14 08:00] VITALS: BP 147/59
[2016-12-14 19:56] VITALS: BP 138/59
[2016-12-15 07:33] VITALS: BP 128/60
[2016-12-15 19:45] VITALS: BP 129/55
[2016-12-16 08:00] VITALS: BP 140/80
[2016-12-16 19:37] VITALS: BP 128/47
[2016-12-17 08:00] VITALS: BP 148/60
[2016-12-17 19:29] VITALS: BP 111/48
[2016-12-18 08:09] VITALS: BP 134/50
[2016-12-18 19:54] VITALS: BP 117/50
[2016-12-19 08:00] VITALS: BP 142/57
[2016-12-19 20:15] VITALS: BP 130/54
[2016-12-20 07:59] VITALS: BP 144/56
[2016-12-20 18:19] LABS: CALCIUM 8.6 mg/dL (8.5-10.1); CREATININE 2.2 mg/dL (0.6-1.0); POTASSIUM 5.3 mmol/L (3.5-5.1)
[2016-12-20 19:48] VITALS: BP 124/56
[2016-12-21 07:32] VITALS: BP 134/48
[2016-12-22 08:30] VITALS: BP 145/57
[2016-12-22 20:00] VITALS: BP 140/52
[2016-12-23 07:56] VITALS: BP 134/56
[2016-12-23 20:45] VITALS: BP 116/50
[2016-12-24 08:00] VITALS: BP 120/60
[2016-12-24 19:58] VITALS: BP 136/51
[2016-12-25 08:00] VITALS: BP 143/54
[2016-12-25 19:38] VITALS: BP 125/42
[2016-12-26 08:30] VITALS: BP 140/53
[2016-12-27 08:00] VITALS: BP 132/64
[2016-12-27 16:02] VITALS: BP 132/64
[2016-12-27 20:31] VITALS: BP 123/44
[2016-12-28 08:30] VITALS: BP 138/60
[2016-12-28 10:47] LABS: CALCIUM 8.6 mg/dL (8.5-10.1); CREATININE 2.1 mg/dL (0.6-1.0); POTASSIUM 4.2 mmol/L (3.5-5.1)
== END 2016-12-28 14:56 | disposition home health service (06) | DRG 64 ==
PROVIDERS: Internal Medicine Pulmonary Disease; Physical Medicine & Rehabilitation
DX: I63.9 Cerebral infarction, unspecified (principal); J69.0 Pneumonitis due to inhalation of food and vomit; G93.41 Metabolic encephalopathy; I50.23 Acute on chronic systolic (congestive) heart failure; E43 Unspecified severe protein-calorie malnutrition; R40.2114 Coma scale, eyes open, never, 24 hours or more after hospital admission; I48.92 Unspecified atrial flutter; I25.5 Ischemic cardiomyopathy; H53.461 Homonymous bilateral field defects, right side; N28.9 Disorder of kidney and ureter, unspecified; I13.0 Hypertensive heart and chronic kidney disease with heart failure and stage 1 through stage 4 chronic kidney disease, or unspecified chronic kidney disease; I48.91 Unspecified atrial fibrillation; J44.9 Chronic obstructive pulmonary disease, unspecified; D63.8 Anemia in other chronic diseases classified elsewhere; F01.50 Vascular dementia, unspecified severity, without behavioral disturbance, psychotic disturbance, mood disturbance, and anxiety; R13.10 Dysphagia, unspecified; F32.9 Major depressive disorder, single episode, unspecified; N18.3 Chronic kidney disease, stage 3 (moderate); R53.81 Other malaise; Z85.01 Personal history of malignant neoplasm of esophagus; Z68.28 Body mass index [BMI] 28.0-28.9, adult; Z95.1 Presence of aortocoronary bypass graft; Z23 Encounter for immunization
CPT/HCPCS: 10112

== ENCOUNTER → 2017-01-05 | Outpatient (CLI) | payer OTHER, BC | LOC: RAD 12:56 | DX: J90 Pleural effusion, not elsewhere classified (principal); I51.7 Cardiomegaly; K44.9 Diaphragmatic hernia without obstruction or gangrene ==

== ENCOUNTER 2017-01-07 10:21 | Inpatient (IN) | payer OTHER, BC ==
[~2017-01-07] VITALS: Ht 165.1 cm; Wt 62.4 kg
--- NOTE | ~2017-01-07 | EKG ---
[address] [address] ELECTROCARDIOGRAM REPORT Name: DARIO CATHERINE W Room #: 215- ADM IN M.R.#: [id number] Admission: 01/07/17 Attend Phys: Glenn Barnes MD Discharge: Date of : [birth year] Report #: [id number] THIS REPORT FOR: //name// [facility] ED Test Date: 2017-01-07 Test Time: 12:21:54 Pat Name: DARIO CATHERINE Department: Room: 215 Gender: F Switchboard Clerk: [id number] : [id number] Requested By: Everardo Mejía Order Number: [id number] MD: Mau Smith Measurements Intervals [place] Rate: 92 P: [place]: QRS: 21 QRSD: 146 T: 55 QT: 399 QTc: 494 Interpretive Statements Atrial flutter Ventricular premature complex Right ventricular conduction delay Poor R wave progression Compared to ECG 12/12/2016 07:38:58 No significant change was found Electronically Signed On 01-08-2017 16:52:23 CDT by Mau Smith [email or web address] <ELECTRONICALLY SIGNED> By: Mau Smith MD, FAC 01/08/17 1652 1221 1221 Mau Smith MD, [facility] /EPI
--- NOTE | ~2017-01-07 | EKG ---
[address] [address] ELECTROCARDIOGRAM REPORT Name: DARIO CATHERINE Room #: 215-P ADM IN M.R.#: [id number] Admission: 01/07/17 Attend Phys: Glenn Barnes MD Discharge: Date of : [birth year] Report #: [id number] THIS REPORT FOR: //name// 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
[2017-01-07 10:23] VITALS: BP 188/89
[2017-01-07 11:07] LABS: ABG SAMPLE TYPE ARTERIAL; BE(vivo) 7.2 mmol/L (-2 to +3); HCO3 34.1 mmol/L (22.0-26.0); LACTATE 0.98 mmol/L (0.5-2.0); O2(CT) 14.7 mL/dL (15.0-23.0); O2Hb 97.3 % (92.0-98.0); PCO2 61.4 mmHg (35.0-45.0); PO2 126.7 mmHg (80.0-100.0); STICK SITE L.RADIAL; pH 7.363 (7.360-7.450); sO2 98.3 % (92.0-98.0)
[2017-01-07 11:08] LABS: Pressure Support 12 cm H20
[2017-01-07 11:16] LABS: HEMATOCRIT 32.2 % (37.0-47.0); HEMOGLOBIN 10.4 gm/dL (12.0-15.0); MCH 29.8 pg (26.0-34.0); MCHC 32.1 g/dL (28.0-37.0); MCV 92.8 fL (80.0-100.0); PLATELET COUNT 246 thou/uL (150-400); RBC 3.47 mil/uL (4.20-5.00); RDW 15.5 % (10.5-14.5); WBC 5.9 thou/uL (4.0-11.0)
[2017-01-07 11:23] LABS: MANUAL DIFF YES
[2017-01-07 11:26] LABS: CALCIUM 9.8 mg/dL (8.5-10.1); CREATININE 1.6 mg/dL (0.6-1.0); POTASSIUM 4.8 mmol/L (3.5-5.1)
[2017-01-07 11:35] LABS: ALBUMIN 3.8 g/dL (3.4-5.0); TOTAL BILIRUBIN 0.5 mg/dL (<0.1-1.0); TOTAL PROTEIN 7.3 g/dL (6.4-8.2); TROPONIN-I 0.04 ng/mL (<0.04-0.07)
[2017-01-07 11:38] LABS: ABSOLUTE NEUTROPHILS 3.9 thou/uL (1.4-8.2); PLATELET ESTIMATE NORMAL; TOTAL CELL COUNT 100
[2017-01-07 14:15] VITALS: BP 185/104
[2017-01-07 15:02] VITALS: BP 183/98
[2017-01-07 15:06] VITALS: BP 195/104
[2017-01-07 19:28] VITALS: BP 208/65
[2017-01-07 23:26] VITALS: BP 186/78
[2017-01-08 02:36] VITALS: BP 197/114
[2017-01-08 04:21] LABS: HEMATOCRIT 31.1 % (37.0-47.0); MCH 29.7 pg (26.0-34.0); MCHC 32.1 g/dL (28.0-37.0); MCV 92.6 fL (80.0-100.0); RBC 3.36 mil/uL (4.20-5.00)
[2017-01-08 04:29] LABS: CALCIUM 9.4 mg/dL (8.5-10.1); CREATININE 1.7 mg/dL (0.6-1.0); POTASSIUM 4.3 mmol/L (3.5-5.1)
[2017-01-08 07:20] VITALS: BP 172/92
[2017-01-08 10:56] VITALS: BP 192/111
[2017-01-08 12:57] LABS: ABG SAMPLE TYPE ARTERIAL; BE(vivo) 6.3 mmol/L (-2 to +3); HCO3 33.2 mmol/L (22.0-26.0); LACTATE 0.97 mmol/L (0.5-2.0); O2(CT) 14.2 mL/dL (15.0-23.0); O2Hb 92.1 % (92.0-98.0); PCO2 59.8 mmHg (35.0-45.0); PO2 70.8 mmHg (80.0-100.0); STICK SITE L.RADIAL; pH 7.362 (7.360-7.450); sO2 93.3 % (92.0-98.0)
[2017-01-08 15:35] VITALS: BP 170/88
[2017-01-08 19:08] VITALS: BP 158/69
[2017-01-09 03:48] VITALS: BP 183/72
[2017-01-09 04:42] LABS: HEMATOCRIT 30.1 % (37.0-47.0); HEMOGLOBIN 9.7 gm/dL (12.0-15.0); MCH 29.6 pg (26.0-34.0); MCHC 32.1 g/dL (28.0-37.0); MCV 92.3 fL (80.0-100.0); RBC 3.27 mil/uL (4.20-5.00); RDW 16.3 % (10.5-14.5); WBC 5.9 thou/uL (4.0-11.0)
[2017-01-09 04:50] LABS: CALCIUM 8.7 mg/dL (8.5-10.1); CREATININE 1.9 mg/dL (0.6-1.0); POTASSIUM 3.6 mmol/L (3.5-5.1)
[2017-01-09 07:28] VITALS: BP 188/81
[2017-01-09 09:24] LABS: % SATURATION 11 % (20-39); IRON 30 ug/dL (50-170); TIBC 267 ug/dL (250-450); UIBC 237 ug/dL
[2017-01-09 11:18] VITALS: BP 162/57
[2017-01-09 15:14] VITALS: BP 167/72
[2017-01-09 19:32] VITALS: BP 178/75
[2017-01-09 21:59] VITALS: BP 178/92
[2017-01-10 03:18] VITALS: BP 148/62
[2017-01-10 05:09] LABS: CALCIUM 8.2 mg/dL (8.5-10.1); CREATININE 2.1 mg/dL (0.6-1.0); POTASSIUM 3.5 mmol/L (3.5-5.1)
[2017-01-10 07:30] VITALS: BP 166/76
[2017-01-10 12:07] VITALS: BP 168/75
[2017-01-10 15:21] VITALS: BP 174/78
[2017-01-10 20:00] VITALS: BP 170/65
[2017-01-11 04:51] LABS: CALCIUM 8.1 mg/dL (8.5-10.1); CREATININE 2.1 mg/dL (0.6-1.0); MAGNESIUM 2.4 mg/dL (1.8-2.4); POTASSIUM 3.1 mmol/L (3.5-5.1)
[2017-01-11 04:57] VITALS: BP 168/83
[2017-01-11 07:51] VITALS: BP 198/61
[2017-01-11 11:11] VITALS: BP 158/74
[2017-01-11 15:16] VITALS: BP 174/82
[2017-01-11 19:51] VITALS: BP 179/89
[2017-01-12 00:15] VITALS: BP 181/75
[2017-01-12 04:42] VITALS: BP 194/88
[2017-01-12 08:00] VITALS: BP 181/75
[2017-01-12 11:50] VITALS: BP 184/82
[2017-01-12 16:05] VITALS: BP 194/75
[2017-01-12 19:45] VITALS: BP 173/91
[2017-01-13 04:05] VITALS: BP 199/109
[2017-01-13 07:35] VITALS: BP 179/86
[2017-01-13 09:02] LABS: HEMATOCRIT 38.3 % (37.0-47.0); HEMOGLOBIN 12.3 gm/dL (12.0-15.0); MCH 29.5 pg (26.0-34.0); RBC 4.16 mil/uL (4.20-5.00); RDW 15.9 % (10.5-14.5); WBC 13.7 thou/uL (4.0-11.0)
[2017-01-13 09:10] LABS: CALCIUM 8.1 mg/dL (8.5-10.1); CREATININE 2.1 mg/dL (0.6-1.0); POTASSIUM 3.4 mmol/L (3.5-5.1)
[2017-01-13 11:30] VITALS: BP 171/89
[2017-01-13 16:15] VITALS: BP 187/82
[2017-01-13 19:45] VITALS: BP 187/82
[2017-01-13 20:54] VITALS: BP 180/93
[2017-01-14 00:15] VITALS: BP 143/81
[2017-01-14 04:15] VITALS: BP 177/84
[2017-01-14 07:40] VITALS: BP 129/69
[2017-01-14 07:49] LABS: HEMATOCRIT 36.5 % (37.0-47.0); HEMOGLOBIN 11.8 gm/dL (12.0-15.0); MCH 29.6 pg (26.0-34.0); MCHC 32.3 g/dL (28.0-37.0); MCV 91.5 fL (80.0-100.0); RBC 3.98 mil/uL (4.20-5.00); RDW 15.8 % (10.5-14.5); WBC 12.6 thou/uL (4.0-11.0)
[2017-01-14 07:54] LABS: CALCIUM 7.9 mg/dL (8.5-10.1)
[2017-01-14 07:57] LABS: POTASSIUM 2.9 mmol/L (3.5-5.1)
[2017-01-14 11:35] VITALS: BP 150/86
[2017-01-14 16:00] VITALS: BP 150/85
[2017-01-14 19:45] VITALS: BP 183/67
[2017-01-15 04:08] LABS: HEMATOCRIT 36.6 % (37.0-47.0); HEMOGLOBIN 11.7 gm/dL (12.0-15.0); MCH 29.5 pg (26.0-34.0); MCV 92.2 fL (80.0-100.0); RBC 3.97 mil/uL (4.20-5.00); RDW 15.4 % (10.5-14.5); WBC 14.8 thou/uL (4.0-11.0)
[2017-01-15 04:09] LABS: CREATININE 1.9 mg/dL (0.6-1.0); POTASSIUM 3.2 mmol/L (3.5-5.1)
[2017-01-15 04:30] VITALS: BP 190/93
[2017-01-15 07:30] VITALS: BP 174/79
[2017-01-15 12:10] VITALS: BP 158/75
[2017-01-15 17:05] VITALS: BP 143/78
[2017-01-15 19:44] VITALS: BP 164/105
[2017-01-15 23:30] VITALS: BP 190/88
[2017-01-16 03:37] VITALS: BP 192/71
[2017-01-16 04:23] LABS: HEMATOCRIT 35.6 % (37.0-47.0); HEMOGLOBIN 11.8 gm/dL (12.0-15.0); MCH 30.3 pg (26.0-34.0); MCHC 33.2 g/dL (28.0-37.0); MCV 91.5 fL (80.0-100.0); RBC 3.9 mil/uL (4.20-5.00); RDW 15.4 % (10.5-14.5); WBC 15.6 thou/uL (4.0-11.0)
[2017-01-16 04:39] LABS: CREATININE 1.9 mg/dL (0.6-1.0); POTASSIUM 3.6 mmol/L (3.5-5.1)
[2017-01-16 07:04] LABS: ABG SAMPLE TYPE ARTERIAL; BE(vivo) 8.6 mmol/L (-2 to +3); HCO3 34.6 mmol/L (22.0-26.0); LACTATE 2.72 mmol/L (0.5-2.0); O2(CT) 17.1 mL/dL (15.0-23.0); O2Hb 93.2 % (92.0-98.0); PCO2 53.8 mmHg (35.0-45.0); PO2 71.4 mmHg (80.0-100.0); STICK SITE R.RADIAL; pH 7.426 (7.360-7.450); sO2 94.4 % (92.0-98.0); tCO2 36.2 mmol/L (24.0-30.0)
[2017-01-16 07:45] VITALS: BP 183/75
[2017-01-16 11:40] VITALS: BP 157/77
[2017-01-16 15:25] VITALS: BP 171/75
[2017-01-16 19:21] VITALS: BP 154/68
[2017-01-16 23:39] VITALS: BP 182/80
[2017-01-17 03:57] VITALS: BP 187/71
[2017-01-17 07:40] VITALS: BP 153/76
[2017-01-17 12:15] VITALS: BP 157/73
[2017-01-17 16:50] VITALS: BP 173/70
[2017-01-17 20:33] VITALS: BP 181/54
[2017-01-17 23:48] VITALS: BP 176/54
[2017-01-18 04:20] VITALS: BP 178/79
[2017-01-18 06:16] LABS: CALCIUM 8.5 mg/dL (8.5-10.1); CREATININE 1.7 mg/dL (0.6-1.0); POTASSIUM 3.9 mmol/L (3.5-5.1)
[2017-01-18 06:49] VITALS: BP 145/76
[2017-01-18 06:57] LABS: HEMATOCRIT 38.7 % (37.0-47.0); HEMOGLOBIN 12.2 gm/dL (12.0-15.0); MCH 28.9 pg (26.0-34.0); MCHC 31.7 g/dL (28.0-37.0); MCV 91.3 fL (80.0-100.0); RBC 4.23 mil/uL (4.20-5.00); RDW 16.1 % (10.5-14.5); WBC 19.6 thou/uL (4.0-11.0)
[2017-01-18 07:53] VITALS: BP 167/78
[2017-01-18 11:15] VITALS: BP 193/96
[2017-01-18 12:02] VITALS: BP 193/96
[2017-01-18 15:38] VITALS: BP 178/70
== END 2017-01-18 19:33 | disposition hospice, home (50) | DRG 177 ==
LOC: ER 10:21 → 2N 13:08 → EROBS 13:08 → 2N 14:44
PROVIDERS: Family Medicine; Internal Medicine Pulmonary Disease; Physician Assistant
PROC: 5A09557 Assistance with Respiratory Ventilation, Greater than 96 Consecutive Hours, Continuous Positive Airway Pressure (ICD-10-PCS; principal; 2017-01-07)
DX: J69.0 Pneumonitis due to inhalation of food and vomit (principal); J96.21 Acute and chronic respiratory failure with hypoxia; I50.43 Acute on chronic combined systolic (congestive) and diastolic (congestive) heart failure; E43 Unspecified severe protein-calorie malnutrition; J44.1 Chronic obstructive pulmonary disease with (acute) exacerbation; N17.9 Acute kidney failure, unspecified; I13.0 Hypertensive heart and chronic kidney disease with heart failure and stage 1 through stage 4 chronic kidney disease, or unspecified chronic kidney disease; I48.92 Unspecified atrial flutter; Z66 Do not resuscitate; N18.3 Chronic kidney disease, stage 3 (moderate); Z77.22 Contact with and (suspected) exposure to environmental tobacco smoke (acute) (chronic); K22.5 Diverticulum of esophagus, acquired; D64.9 Anemia, unspecified; K44.9 Diaphragmatic hernia without obstruction or gangrene; E87.6 Hypokalemia; I48.2 Chronic atrial fibrillation; Z23 Encounter for immunization; Z86.73 Personal history of transient ischemic attack (TIA), and cerebral infarction without residual deficits; Z79.899 Other long term (current) drug therapy; Z90.5 Acquired absence of kidney; Z68.22 Body mass index [BMI] 22.0-22.9, adult
CPT/HCPCS: 10081